=== PATIENT | female | born 1955 | race Caucasian/White ===

== ENCOUNTER 2022-11-08 05:42 | Observation (INO) | payer BC, MEDICARE ==
[2022-11-03 11:26] LABS: Specific Gravity 1.007 (1.005-1.030); Urine Bilirubin NEGATIVE (Negative); Urine Blood Negative (Negative); Urine Clarity Clear (Clear); Urine Color Colorless (Yellow); Urine Glucose NEGATIVE (Negative); Urine Protein NEGATIVE (Negative); Urine Urobilinogen Normal (Normal); Urine pH 7.5 (5.0-7.0)
--- NOTE | 2022-11-03 11:26 | RAD REPORT ---
EXAM DESCRIPTION: Michael Pa And Lat (2 Views)11/03/2022 11:06 am CLINICAL HISTORY: Preop for hip surgery/hypertension COMPARISON: None FINDINGS: Lateral lung bases are not included in the field view are not evaluated Lungs are moderately to markedly hyperaerated. Visualized lungs appear clear of acute infiltrate. The heart is normal size IMPRESSION: Moderately to markedly hyperaerated lungs presumably indicating COPD. No acute abnormality is displayed
[2022-11-03 11:28] LABS: Absolute Lymphocytes (CBC) 1.8 K/uL (0.7-4.9); Hematocrit 40.8 % (36.0-45.0); Lymphocytes % 27.3 % (15.3-44.8); MCV 93.9 fL (80-100); MPV 8.1 fL (7.6-11.3); RBC Red Blood Cell Count 4.34 M/uL (3.86-4.86)
[2022-11-03 11:32] LABS: Protime INR 1.01
[2022-11-03 11:55] LABS: Albumin 3.8 g/dL (3.4-5.0); Bilirubin Total 0.3 mg/dL (0.2-1.0); Potassium 3.8 mmol/L (3.5-5.1); Protein, Total 7.3 g/dL (6.4-8.2)
--- NOTE | 2022-11-03 16:29 | EKG ---
Test Date: 2022-11-03 Test Time: 10:50:41 Oxidation Engineer: MICHELE MEASUREMENT RESULTS: Intervals: Rate: 59 MT: 150 QRSD: 82 QT: 442 QTc: 437 [place]: P: 71 MT: 150 QRS: 67 T: 35 INTERPRETIVE STATEMENTS: Sinus bradycardia Nonspecific T wave abnormality Abnormal ECG No previous ECG available for comparison Electronically Signed On 11-03-22 16:28:38 [employer]ERTER by Silas Guillory
[2022-11-07 12:35] LABS: SARS-CoV-2 Antigen Rapid Res Negative (Negative)
[2022-11-08] MEDS ORDERED: CELECOXIB 100 MG CAPSULE ONE (06:04)
[2022-11-08] MEDS ORDERED: GABAPENTIN 100 MG CAP ONE (06:04)
[2022-11-08] MEDS ORDERED: CEFAZOLIN SODIUM 2 GM/VIAL ONE (06:04)
[2022-11-08] MEDS ORDERED: Oxycodone HCl/Acetaminophen 1 TAB TAB ONE (06:05)
[2022-11-08] MEDS ORDERED: ACETAMINOPHEN 500 MG TAB ONE (06:05)
[2022-11-08] MEDS ORDERED: NA CHLORIDE 0.9% 1,000 ML ONE ×2 (06:05→08:42)
[2022-11-08] MEDS ORDERED: dexAMETHasone 10 MG/ML VIAL ONE ×2 (06:18→06:27)
[2022-11-08] MEDS ORDERED: BUPIVACAINE 0.25% PF 10 ML VIAL ONE (06:18)
[2022-11-08] MEDS ORDERED: BUPIVACAINE 0.75% (PF) 2 ML SP ONE (06:18)
[2022-11-08] MEDS ORDERED: EPINEPHRINE/PF 1 MG/ML AMP ONE ×2 (06:18→08:47)
[2022-11-08] MEDS ORDERED: TRANEXAMIC ACID 1,000 MG/10 ML VIAL IV ONE (06:22)
[2022-11-08] MEDS ORDERED: propofoL 200 MG/20 ML VIAL IV ONE ×2 (06:26→06:27)
[2022-11-08] MEDS ORDERED: FENTANYL CITR 100 MCG/2 ML ONE (06:26)
[2022-11-08] MEDS ORDERED: KETAMINE HCL 500 MG/5 ML VIAL ONE (06:27)
[2022-11-08] MEDS ORDERED: MIDAZOLAM HCL 2 MG/2 ML INJ ONE (06:27)
[2022-11-08] MEDS ORDERED: ONDANSETRON 4 MG/2 ML VIAL ONE (06:28)
[2022-11-08] MEDS ORDERED: LIDOCAINE 2% MPF 5 ML VIAL ONE (06:28)
[2022-11-08] MEDS ORDERED: KETOROLAC 30 MG/ML INJ ONE (06:28)
[2022-11-08] MEDS ORDERED: LIDOCAINE 1% MPF 2 ML AMPULE ONE (06:30)
[2022-11-08] MEDS ORDERED: NS 0.9% VIAL 30 ML ONE (07:30)
[2022-11-08] MEDS ORDERED: NS 0.9% VIAL 10 ML ONE (08:26)
[2022-11-08] MEDS ORDERED: DOCUSATE NA 100 MG CAP PO PRN (09:20)
[2022-11-08] MEDS ORDERED: ONDANSETRON 4 MG/2 ML VIAL IV PRN (09:20)
--- NOTE | 2022-11-08 09:20 | P.BOP ---
Preoperative diagnosis: right hip arthritis Postoperative diagnosis: same Primary procedure: right total hip arthoplasty Estimated blood loss: 100ccs Anesthesia: General Transferred to: Recovery Room Condition: Good
[2022-11-08 10:19] LABS: Hematocrit 34.3 % (36.0-45.0)
--- NOTE | 2022-11-08 10:34 | RAD REPORT ---
EXAM DESCRIPTION: RAD - Hip Right 1 View - 11/08/2022 8:38 am CLINICAL HISTORY: Total hip in OR 5 COMPARISON: None. FINDINGS: Single AP view of the right hip obtained. Right total hip arthroplasty hardware is in satisfactory alignment on the provided single-view. Soft tissue gas along the surgical defect. There is no fracture or dislocation. No acute or destructive rex ny process seen. IMPRESSION: Satisfactory right total hip arthroplasty hardware alignment.
--- OUTSIDE RECORDS SUMMARY | 2022-11-08 10:36 | XMS REPORT | Continuity of Care Document ---
:1955 Author Organization [facility] t Address [address] [facility] [address] [place] [address] Care Team Providers Name Role Phone Sindy Lubin Attending Clinician Aram Scales Admitting Clinician Unavailable Payers Payer Name Policy Type Policy Number Effective Date Expiration Date andrew [facility] [id number] (MEDICARE 00:00:00 REPLACEMENT HMO) Problems Condition Condition Condition Status Onset Resolution Last Treating Co mments Source Name Details Category Date Date Treatment Clinician Date [id number] Primary Problem Comm on osteoarthr [facility] Allergies, Adverse Reactions, Alerts This patient has no known allergies or adverse reactions. Social History Social Habit Start Date Stop Date Quantity Comments Source History of Tobacco Current Smoker [facility] Sex Assigned At Com mon [facility] - [facility] Smoking Status Start Date Stop Date Source Current Smoker 2022-10-05 00:00:00 [facility] Medications Ordered Filled Start Stop Current Ordering Indication Dosage Frequency Signature Comments Components Source Medication Medication Date Date Medication? Clinician (SIG) Name Name Complete Complete No Complete Multi-Vitam Multi-Vitam Multi-Sujata in in min Pravastatin Pravastatin No 1{table QD Pravastati Sodium 40 Sodium 40 t} n Sodium MG MG 40 MG Zolpidem Zolpidem No 1{table QD Zolpidem Tartrate 10 Tartrate 10 t_at_be Tartrate MG MG dtime_a 10 MG s_neede d} Probiotic Probiotic No Probiotic Carvedilol Carvedilol No 1{table BID Carvedilol 6.25 MG 6.25 MG t_with_ 6.25 MG food} Citalopram Citalopram No 1{table QD Citalopram Hydrobromid Hydrobromid t} Hydrobromi e 40 MG e 40 MG de 40 MG metFORMIN metFORMIN No 1{table QD metFORMIN HCl ER 500 HCl ER 500 t_with_ HCl ER 500 MG MG evening MG _meal} Calcium & Calcium & No Calcium & Magnesium Magnesium Magnesium Carbonates Carbonates Carbonates Aspirin 81 Aspirin 81 No 1{table QD Aspirin 81 MG MG t} MG + + No + Complete Complete Complete Multi Multi Multi Vitamin B12 Vitamin B12 No Vitamin B12 Vital Signs Vital Name Observation Time Observation Value Comments Source height 2022-10-05 10:15:00 64 [in_i] [facility] weight 2022-10-05 10:15:00 145 [lb_av] [facility] temperature 2022-10-05 10:15:00 98.0 [degF] [facility] bmi 2022-10-05 10:15:00 24.89 kg/m2 [facility] blood pressure 2022-10-05 10:15:00 122 mm[Hg] [facility] - systolic [facility] blood pressure 2022-10-05 10:15:00 78 mm[Hg] [facility] - diastolic [facility] Procedures This patient has no known procedures. Encounters Start End Encounter Admission Attending Care Care Encounter Source Date/Time Date/Time Type Type Clinicians Facility Department ID 2022-10-07 Outpatient [facility] [id number] Common 10:53:02 [id number] [facility] 2022-10-05 Outpatient [facility] [id number] Common 10:17:00 [id number] [facility] 2022-10-05 2022-10-05 OFFICE [facility] [id number] Co mmon 00:00:00 00:00:00 VISIT NEW Spir it PT LEVEL 3 [facility] 2022-09-22 2022-09-22 CAV Sera [id number] [facility] [id number] [facility] 21:00:00 22:00:00 Tristian [id number] [facility] [id number] 2022-07-25 2022-07-25 Outpatient [facility] [id number] [facility] 00:00:00 00:00:00 [id number] [facility] Results This patient has no known results.
[2022-11-08 11:55] VITALS: BMI 24.9
[2022-11-08] MEDS: CEFAZOLIN 1 GM in NA CHLORIDE 0.9% 50 ML IVPB SCH ×2 (11:56→17:44)
--- NOTE | 2022-11-08 12:33 | P.CNS ---
Date of Consult: 11/08/22 Reason for Consult: Medical management. Requesting Physician: Rufus Fajardo Chief Complaint: Right hip pain History of Present Illness: Patient is a 67-year-old female with a past medical history significant for DM 2, hypertension, insomnia, depression, hyperlipidemia who presents for a planned procedure with his orthopedic surgeon. Patient reported that she has been having pain in her right hip for the past 4 years. Patient has attempted conservative measures, pain medications but pain became worse over time. Patient rated pain as 10/10 in severity and described pain as aching quality before presentation to the hospital. Patient denies any other signs or symptoms. Symptoms are aggravated or relieved by nothing. Patient successfully had a right hip arthroplasty. Patient currently resting in bed at time of assessment. Patient currently denies any pain in left hip pain. Allergies tomato Allergy (Verified 11/08/22 06:29) ulcers in mouth codeine Adverse Reaction (Verified 11/08/22 06:29) Nausea/Vomiting Home Medications: Aspirin 81 mg PO DAILY 11/03/22 Calcium Carb/Mag Ox/Zinc Sulf [Mpl-Nzc-Teto 334-134-5 mg Tab] 1 each PO DAILY 11/03/22 Citalopram Hydrobromide [Citalopram HBr] 40 mg PO BEDTIME 11/03/22 Cyanocobalamin (Vitamin B-12) [Vitamin B12] 2,500 mcg PO DAILY 11/03/22 Lactobacillus Acidophilus [Acidophilus Probiotic] 1 each PO DAILY 11/03/22 Metformin ER [Glucophage ER] 500 mg PO DAILY 11/03/22 Multivitamin 1 each PO DAILY 11/03/22 Pravastatin [Pravachol] 40 mg PO BEDTIME 11/03/22 Zolpidem Tartrate [Ambien] 10 mg PO BEDTIME 11/03/22 carvediloL [Carvedilol] 6.25 mg PO BID 11/03/22 - Past Medical/Surgical History Diabetic: Yes -: DM -: HTN -: hysterectomy - Family History Father Medical History: Cancer Notes: bone cancer with mets to lung and brain Mother Medical History: Stroke - Social History Smoking Status: Current every day smoker Counseled patient to stop smoking for: less than 10 minutes Smoking therapy provided: Yes Patient receptive to therapy: Yes Alcohol use: No CD- Drugs: No Caffeine use: Yes Place of Residence: Home Review of Systems General: Unremarkable Eyes: Unremarkable ENT: Unremarkable Respiratory: Unremarkable Cardiovascular: Unremarkable Gastrointestinal: Unremarkable Genitourinary: Unremarkable Musculoskeletal: Other (Right hip pain ) Integumentary: Unremarkable Neurological: Unremarkable Lymphatics: Unremarkable Physical Examination Temp Pulse Resp BP Pulse Ox 97.4 F 55 16 134/58 L 97 11/08/22 12:00 11/08/22 12:00 11/08/22 12:00 11/08/22 12:00 11/08/22 12:00 General: Oriented x3, Cooperative HEENT: Atraumatic, Normocephalic, PERRLA Neck: Supple, 2+ carotid pulse no bruit, JVD not distended, No Thyromegaly Respiratory: Clear to auscultation bilaterally, Normal air movement Cardiovascular: No edema, Normal pulses, Regular rate/rhythm Capillary refill: <2 Seconds Gastrointestinal: Normal bowel sounds, Non-distended Musculoskeletal: Tenderness Integumentary: No rashes, No breakdown, No significant lesion Neurological: Normal speech, Normal tone, Normal affect Lymphatics: No axilla or inguinal lymphadenopathy Laboratory Data (last 24 hrs) 11/08/22 10:04: Hgb 11.7 L, Hct 34.3 L Conclusions/Impression: --Right hip osteoarthritis. Status post right total hip replacement. Orthopedic surgeon on board. PT eval and treat. Will await further recommendations. -- DM2. BS monitoring with sliding scale insulin. --Hypertension. Stable. Continue home medication. --Nicotine dependence. Patient counseled on cessation. Refuses nicotine patch. -- Hyperlipidemia. Continue statin. --Insomnia. Continue home medication. --Depression. Continue home medication. --DVT prophylaxis with SCDs. Physician Review: Patient Assessed, Agree with Above Assessment and Plan Critical Care: No
[2022-11-08] MEDS ORDERED: PNEUMOCOCCAL VACCINE 0.5 ML IMVAC ONE (13:00)
[2022-11-08 13:08] LABS: Phosphorus 3.5 mg/dL (2.5-4.9)
[2022-11-08] MEDS: HYDROCODONE/APAP 5/325 MG TAB PO PRN ×2 (14:37→20:32)
[2022-11-08 17:13] LABS: Hematocrit 34.7 % (36.0-45.0)
[2022-11-08] MEDS ORDERED: HYDROCODONE/APAP 5/325 MG TAB PO ONE (17:17)
[2022-11-08] MEDS: NICOTINE 14 MG/PAT TD SCH (17:26)
[2022-11-08] MEDS: INSULIN -REGULAR HUMAN 50 UNIT/0.5 ML ML SQ SCH ×2 (17:28→20:43)
--- NOTE | 2022-11-08 20:08 | OP ---
Date of Procedure: 11/08/2022 Surgeon: Rufus Fajardo MD Preoperative Diagnosis: Right hip arthritis. Postoperative Diagnosis: Right hip arthritis. Procedure: Right total hip arthroplasty using the [place] system. Estimated Blood Loss: 100 cc. Complications: There were no complications. Indications For Operation: Ms. Chávez is a 67-year-old female who has been troubled with the right hip for quite some time. It is limiting her activities of daily living and is extremely painful. X-ray s demonstrate severe arthritic change with some destruction of the acetabulum, and risks, benefits, a nd alternatives of different methods of treating this was discussed with her. She would opt for a to rubén hip arthroplasty and agrees to proceed. Description Of Procedure: The patient was taken to the operating room and moved to the operative bed . A spinal anesthesia was then performed. She does have a Baugh placed. She was then rolled left s rakel down with an axillary roll and her right lower extremity was then prepped and draped in usual meaghan rile fashion for the procedure after being properly positioned using hip positioners. A standard siena venegas taken down carefully through skin and soft tissue. Meticulous hemostasis being maintained with the Bovie electrocautery. This leads down to the fascia. A small stab wound was made in the fascia and the gluteal tendon was palpated to ensure the fascial incision was in the correct position. Aft er this, the fascial incision was then taken carefully up to near the tip of the greater trochanter w here the fibers of gluteus daphnie were encountered. The gluteus daphnie was then spread using finge r pressure. The sciatic nerve was then palpated and protected as the bursa was removed. This allowe d for visualization of the external rotators and the external rotators and capsule were then taken do wn and tagged for later repair. The hip itself was then dislocated and a slightly shorter than stand tyrel neck cut was then performed. The head was then measured. Any soft tissues were removed from ins rakel the acetabulum. The acetabulum itself appeared to be dished out superiorly and anteriorly with s ome central osteophyte. The true acetabular floor was then obtained using reamers and it was then re emili up sequentially. After this, the Radha cup was then placed in appropriate position and hammer ed into place. Attention was then turned to the femur and hand box coverer was used to lateralize followed by canal-finding reamer followed by sequential broaching. An x-ray was then performed which demonst rated the cup could be placed a little bit more firmly into the acetabulum and it looks like we can g o up 1 size on the stem. The stem was then broached to next size up and the liner was placed in the acetabulum, which was then secured in place using the ball impactor. The acetabulum itself was extre terence stable. After this, the final stem was then placed and it appeared to be very solid. The wound was copiously irrigated and a trial -4 was selected. It was quite difficult to relocate this until decision was made to move forward with the final -4 as this was the shortest that we had. I do not t hink that cutting the neck farther and putting a smaller stem would be beneficial as the neck cut was already short and it was definitely not prominent. I think that we are re-establishing a hip center with this -4. The final -4 ball was then tapped into place and it was then reduced. It was very st able to flexion, adduction and internal rotation. It comes to full extension with some tightness and extending past 0, however, not overly so. The wound was then copiously irrigated. The external rot ators and capsule were then repaired back to the greater trochanter via bone tunnels. This was follo wed by irrigation and closure of the skin in a watertight fashion using heavy Vicryl followed by clos ure of the skin using 2-0 Vicryl followed by pedro. [facility] recovery [facility]. /SHAGUFTA Voice ID: [id number] Report ID: [id number]
[2022-11-08] MEDS: carvediloL 6.25 MG TAB PO SCH (20:31)
[2022-11-08] MEDS ORDERED: ZOLPIDEM TARTRATE 10 MG TABLET PO SCH (21:00)
[2022-11-08] MEDS ORDERED: HOME MED 1 EA UNK (Pravastatin [Pravachol*] 40 MG/TAB Tab) PO SCH (21:00)
[2022-11-08] MEDS ORDERED: ATORVASTATIN 10 MG TAB PO SCH (21:00)
[2022-11-08] MEDS ORDERED: CITALOPRAM 10 MG TABLET PO SCH (21:00)
[2022-11-09] MEDS: CEFAZOLIN 1 GM in NA CHLORIDE 0.9% 50 ML IVPB SCH (00:09)
[2022-11-09] MEDS: HYDROCODONE/APAP 5/325 MG TAB PO PRN ×4 (00:44→12:37)
[2022-11-09 03:42] LABS: Absolute Lymphocytes (CBC) 0.8 K/uL (0.7-4.9); Hematocrit 32.2 % (36.0-45.0); Lymphocytes % 6.8 % (15.3-44.8); MCV 93.5 fL (80-100); MPV 8.4 fL (7.6-11.3); RBC Red Blood Cell Count 3.44 M/uL (3.86-4.86)
[2022-11-09 03:59] LABS: Potassium 3.6 mmol/L (3.5-5.1)
[2022-11-09] MEDS ORDERED: POTASSIUM 25 MEQ EFFERV TAB PO ONE (05:01)
[2022-11-09] MEDS: INSULIN -REGULAR HUMAN 50 UNIT/0.5 ML ML SQ SCH ×2 (07:30→11:30)
[2022-11-09] MEDS: carvediloL 6.25 MG TAB PO SCH (08:36)
[2022-11-09] MEDS: NICOTINE 14 MG/PAT TD SCH (08:38)
[2022-11-09 08:55] VITALS: O2SAT 94
[2022-11-09] MEDS ORDERED: CALCIUM CARB PO SCH (09:00)
[2022-11-09] MEDS ORDERED: LACTOBACILLUS/ACIDOPHILUS TAB PO SCH (09:00)
[2022-11-09] MEDS ORDERED: ZINC SULF PO SCH (09:00)
[2022-11-09] MEDS ORDERED: MULTIVIT W/ MINERAL TAB PO SCH (09:00)
[2022-11-09] MEDS ORDERED: ENOXAPARIN 40 MG/0.4 ML SQ SCH (09:00)
[2022-11-09] MEDS ORDERED: MAG OX PO SCH (09:00)
[2022-11-09] MEDS ORDERED: [UNRECOGNIZED DRUG - OTHER] PO SCH (09:00)
[2022-11-09] MEDS ORDERED: CYANOCOBALAMIN 1,000 MCG TAB PO SCH (09:00)
[2022-11-09 12:27] VITALS: BP 149/70; TEMP 98.4
--- NOTE | 2022-11-09 23:28 | P.PN ---
Subjective Date of Service: 11/09/22 Chief Complaint: Right hip pain POD #1 right total hip arthroplasty. She is doing well this morning. She reports mild hip pain. She has been working well with PT and has been ambulating around the nursing station, without significant issues. Review of Systems 10-point ROS is otherwise unremarkable Musculoskeletal: Leg Pain (right hip) Physical Examination - Vital Signs Temperature: 98.4 F Blood Pressure: 149/70 Pulse: 59 Respirations: 16 Pulse Ox (%): 98 - Physical Exam General: Alert, In no apparent distress, Oriented x3 HEENT: Atraumatic, Mucous membr. moist/pink, EOMI, Sclerae nonicteric Neck: JVD not distended Respiratory: Clear to auscultation bilaterally, Normal air movement Cardiovascular: No edema, Regular rate/rhythm, Normal S1 S2, No gallops, No rubs, No murmurs Gastrointestinal: Normal bowel sounds, Soft and benign, Non-distended, No tenderness, No rebound, No guarding Musculoskeletal: No clubbing Integumentary: No rashes Neurological: Normal speech, Cranial nerves 3-12 intact, Normal affect - Studies Laboratory Data (last 24 hrs) 11/09/22 02:47: Sodium 140, Potassium 3.6, BUN 13, Creatinine 0.73, Glucose 201 H 11/09/22 02:47: WBC 12.00 H, Hgb 11.1 L, Hct 32.2 L, Plt Count 243 Assessment And Plan - Plan DIAGNOSES: # Right Hip Osteoarthritis s/p Right Hip Total Arthroplasty (11/08/2022) # Suspect Reactive Leukocytosis # Hyperglycemia in Type II Diabetes Mellitus # Depression # Hyperlipidemia RECOMMENDATIONS: 1. She appears to be doing well physically and will likely do well with Home Health 2. In regards to her hyperglycemia, please resume her home diabetic medications and start ADA diet 3. Her WBC is borderline high, there are no clinical signs of infection - suspect this is reactive due to pain - If discharge is planned for today, consider rechecking her CBC in a few days to ensure WBC has normalized. Thank you for this consultation. Internal Medicine will continue to follow along while she is hospitalized. Jose Zavala M.D.
== END 2022-11-09 13:45 | disposition home health service (06) ==
LOC: OR 05:42 → 2ND 10:33
PROVIDERS: ADMIT Orthopaedic Surgery; ATTEND Orthopaedic Surgery
PROC: 0SR90JA Replacement of Right Hip Joint with Synthetic Substitute, Uncemented, Open Approach (ICD-10-PCS; principal; 2022-11-08 07:00)
DX: M16.11 Unilateral primary osteoarthritis, right hip (principal); E11.9 Type 2 diabetes mellitus without complications; I10 Essential (primary) hypertension; E78.00 Pure hypercholesterolemia, unspecified; F17.210 Nicotine dependence, cigarettes, uncomplicated; F32.A Depression, unspecified
CPT/HCPCS: 93005; 85025 ×2; 80048; 36415 ×4; 86900; 83735; 86850; 84100; 85610; 86901; 82947 ×6; 88305; 88311; 85730; 85018 ×2; 85014 ×2; 81003; 80053; 71046; 73501; 97110; 97116 ×2; 97161; 97530; 87811; 27130; J2704 ×2; J0171 ×2; J1815 ×2; J2001; J1650; J2250; J3010; J1100 ×2; A4216 ×2; J7030 ×2; J2405 ×2; J0690 ×3; G0378; G0379

== ENCOUNTER 2023-04-15 12:37 | Emergency (ER) | payer MEDICARE ==
--- OUTSIDE RECORDS SUMMARY | 2023-04-15 12:39 | XMS REPORT | Continuity of Care Document ---
:1955 Author Organization [facility] t Address [address] [place] [address] [address] [place] [address] Care Team Providers Name Role Phone Sindy Lubin Attending Clinician Kirk Attending Clinician Unavailable Aram Scales Admitting Clinician Unavailable Kirk Admitting Clinician Unavailable Payers Payer Name Policy Type Policy Number Effective Date Expiration Date S andrew [facility] [id number] (MEDICARE 00:00:00 REPLACEMENT HMO) Problems Condition Condition Condition Status Onset Resolution Last Treating Co mments Source Name Details Category Date Date Treatment Clinician Date [id number] Primary Problem Comm on osteoarthr [facility] right hip [facility] Allergies, Adverse Reactions, Alerts This patient has no known allergies or adverse reactions. Social History Social Habit Start Date Stop Date Quantity Comments Source History of Tobacco Current Smoker [facility] - [facility] Use [facility] Sex Assigned At Com mon [facility] - [facility] Smoking Status Start Date Stop Date Source Current Smoker 2022-10-05 00:00:00 [facility] - [facility] Medications Ordered Filled Start Stop Current Ordering Indication Dosage Frequency Signature Comments Components Source Medication Medication Date Date Medication? Clinician (SIG) Name Name Vitamin B12 Vitamin B12 No Vitamin B12 Complete Complete No Complete Multi-Vitam Multi-Vitam Multi-Sujata [...] + Complete Complete Complete Multi Multi Multi Vital Signs Vital Name Observation Time Observation Value Comments Source height 2022-10-05 10:15:00 64 [in_i] [facility] weight 2022-10-05 10:15:00 145 [lb_av] [facility] temperature 2022-10-05 10:15:00 98.0 [degF] [facility] bmi 2022-10-05 10:15:00 24.89 kg/m2 [facility] blood pressure 2022-10-05 10:15:00 122 mm[Hg] [facility] - systolic [facility] blood pressure 2022-10-05 10:15:00 78 mm[Hg] [facility] - diastolic [facility] Procedures This patient has no known procedures. Encounters Start End Encounter Admission Attending Care Care Encounter Source Date/Time Date/Time Type Type Clinicians Facility Department ID 2022-10-07 Outpatient [facility] [id number] Common 10:53:02 [id number] [facility] 2022-10-05 Outpatient [facility] [id number] Common 10:17:00 [id number] [facility] 2023-04-14 2023-04-14 CAV Sera [id number]. [id number]. [facility] [id number] [facility] 20:00:00 20:30:00 Revisit: Tristian [id number] 4. [id number] Closure & [id number] Clinical Check-in 2023-04-06 2023-04-06 [facility]patient [facility] [id number] [facility] 00:00:00 00:00:00 [id number] [facility] 2023-01-14 2023-01-14 [facility] [id number] [facility] 00:00:00 00:00:00 [id number] [facility] 2022-10-05 2022-10-05 OFFICE [facility] [id number] Co mmon 00:00:00 00:00:00 VISIT [facility] PT LEVEL 3 - [facility] 2022-09-22 2022-09-22 CAV Sera [id number]. [id number]. [facility] [id number] [facility] 21:00:00 22:00:00 Tristian [id number] [facility] 4 [id number] 2022-07-25 2022-07-25 [facility]patient [facility] [id number] [facility] 00:00:00 00:00:00 [id number] [facility] Results This patient has no known results.
[2023-04-15 13:23] LABS: Absolute Lymphocytes (CBC) 2.7 K/uL (0.7-4.9); Hematocrit 38.8 % (36.0-45.0); Lymphocytes % 36.9 % (15.3-44.8); MCV 93.6 fL (80-100); MPV 7.7 fL (7.6-11.3); RBC Red Blood Cell Count 4.15 M/uL (3.86-4.86)
--- NOTE | 2023-04-15 13:40 | RAD REPORT ---
EXAM DESCRIPTION: RAD - Chest Single View - 04/15/2023 1:34 pm CLINICAL HISTORY: CHEST PAIN Chest pain. COMPARISON: <Comparisons> FINDINGS: Portable technique limits examination quality. The lungs are grossly clear. The heart is normal in size. No displaced fractures. IMPRESSION: No acute intrathoracic process suspected.
[2023-04-15 13:43] LABS: Albumin 3.4 g/dL (3.4-5.0); Bilirubin Direct 0.1 mg/dL (0-0.2); Bilirubin Indirect, Calculated 0.3 mg/dL (0.2-0.8); Bilirubin Total 0.4 mg/dL (0.2-1.0); Potassium 3.5 mEq/L (3.5-5.1); Troponin High Sensitivity 4.5 pg/mL (<58.9)
[2023-04-15] MEDS ORDERED: NA CHLORIDE 0.9% 500 ML ONE (14:57)
[2023-04-15 15:20] LABS: Specific Gravity 1.015 (1.005-1.030); Urine Bilirubin Negative (Negative); Urine Blood Negative (Negative); Urine Clarity Clear (Clear); Urine Color Yellow (Yellow); Urine Glucose Negative (Negative); Urine Protein Negative (Negative); Urine Urobilinogen 0.2 mg/dL (0.2-1.0); Urine pH 8.5 (5.0-7.0)
[2023-04-15 15:26] LABS: Urine Bacteria None Seen /HPF (<20); Urine RBC <5 /HPF (None Seen)
--- NOTE | 2023-04-15 16:02 | RAD REPORT ---
EXAM DESCRIPTION: CT - Head Brain Wo Cont - 04/15/2023 3:56 pm CLINICAL HISTORY: Dizziness;Weakness Headache, drowsiness COMPARISON: <Comparisons> TECHNIQUE: All CT scans are performed using dose optimization technique as appropriate and may inclu de automated exposure control or mA/KV adjustment according to patient size. FINDINGS: No intracranial hemorrhage, hydrocephalus or extra-axial fluid collection.Mild generalized brain atrophy.No areas of brain edema or evidence of midline shift. The paranasal sinuses and mastoids are clear. The calvarium is intact. IMPRESSION: No acute intracranial abnormality.
[2023-04-15] MEDS ORDERED: MECLIZINE HCL 12.5 MG TAB ONE (16:06)
--- NOTE | 2023-04-15 16:43 | ER ---
Nurse's Notes [facility] Name: Lexi Chávez Age: 67 yrs Sex: Female : 1955 Arrival Date: 04/15/2023 Time: 12:37 Bed 14 Private MD: Diagnosis: Weakness;Dizziness and giddiness Presentation: 04/15 12:44 Chief complaint: Patient states: has been shaky and weak X 2 days, her BS has been iw running low in the 60's , she is pre-diabetic , her BP has been running high , denies chills, she felt like she might have had fever this morning, denies n/v/d. 12:45 Coronavirus screen: Client presents with at least one sign or symptom that may indicate iw coronavirus-19. Ebola Screen: Patient negative for fever greater than or equal to 101.5 degrees Fahrenheit, and additional compatible Ebola Virus Disease symptoms Patient denies exposure to infectious person. Patient denies travel to an Ebola-affected area in the 21 days before illness onset. No symptoms or risks identified at this time. Initial Sepsis Screen: Does the patient meet any 2 criteria? No. Patient's initial sepsis screen is negative. Does the patient have a suspected source of infection? No. Patient's initial sepsis screen is negative. Risk Assessment: Do you want to hurt yourself or someone else? Patient reports no desire to harm self or others. Onset of symptoms was April 13, 2023. 12:45 Method Of Arrival: Ambulatory iw 12:45 Acuity: DENISA 3 iw Triage Assessment: 16:59 General: Behavior is. kc6 Historical: - Allergies: 12:47 No Known Allergies; iw - Home Meds: 12:47 pravastatin oral [Active]; carvedilol oral [Active]; Metformin Oral [Active]; iw - Immunization history:: Adult Immunizations up to date. - Social history:: Smoking status: Patient reports the use of cigarette tobacco products. Screenin:50 [facility] ED Fall Risk Assessment (Adult) History of falling in the last 3 months, dd1 including since admission No falls in past 3 months (0 pts) Score/Fall Risk Level 0 - 2 = Low Risk Oriented to surroundings, Maintained a safe environment. Abuse screen: Denies threats or abuse. Denies injuries from another. Nutritional screening: No deficits noted. Tuberculosis screening: No symptoms or risk factors identified. Assessment: 12:50 Pain: Denies pain. Cardiovascular: No deficits noted. Reports fatigue, WEAKNESS SINCE dd1 YESTERDAY, STATES BLOOD SUGAR LOW. LOWEST AT HOME 75. STATES FEELING SHAKY, DENIES FEVER. STATES COULD ALSO BE HAVING A SINU INFECTION DUE TO HEAD ACHE ABOVE L EYE. AOX4, GCS 15. Heart tones S1 S2 Chest pain is denied. 13:41 Reassessment: Patient appears in no apparent distress at this time. Patient and/or [facility] family updated on plan of care and expected duration. Pain level reassessed. Patient is alert, oriented x 3, equal unlabored respirations, skin warm/dry/pink. 14:45 Reassessment: Patient appears in no apparent distress at this time. No changes from [facility] previously documented assessment. Patient and/or family updated on plan of care and expected duration. Pain level reassessed. Patient is alert, oriented x 3, equal unlabored respirations, skin warm/dry/pink. 15:45 Reassessment: Patient appears in no apparent distress at this time. No changes from [facility] previously documented assessment. Patient and/or family updated on plan of care and expected duration. Pain level reassessed. Patient is alert, oriented x 3, equal unlabored respirations, skin warm/dry/pink. Vital Signs: 12:45 BP 151 / 98; Pulse 60; Resp 18; Temp 98.3; Pulse Ox 99% on R/A; Weight 63.5 kg; Height iw 5 ft. 3 in. ; 13:41 BP 137 / 83; Pulse 53; Resp 17 S; Pulse Ox 93% on R/A; kc6 15:10 BP 144 / 75; Pulse 56; Resp 19 S; Pulse Ox 96% on R/A; kc6 16:12 BP 155 / 86; Pulse 60; Resp 17 S; Pulse Ox 100% on R/A; kc6 12:45 Body Mass Index 24.80 (63.50 kg, 160.02 cm) iw ED Course: 12:38 Patient arrived in ED. mm9 12:41 Yayo Feldman, AMANDA is Primary Nurse. dd1 12:46 Christina Leal FNP-C is PHCP. kb 12:46 Rosalie Centeno MD is Attending Physician. kb 12:47 Triage completed. iw 12:47 Arm band placed on. iw 12:50 Patient has correct armband on for positive identification. Bed in low position. Call dd1 light in reach. Side rails up X 1. Adult w/ patient. 13:19 monitoring analyst on. Pulse ox on. NIBP on. dd1 13:19 Inserted saline lock: 18 gauge in left wrist, using aseptic technique. dd1 13:36 XRAY Chest (1 view) In Process Unspecified. EDMS 13:41 Report received from Yayo Feldman RN. kc6 15:57 CT Head Brain wo Cont In Process Unspecified. EDMS 16:12 Troponin High Sensitivity Sent. kc6 16:59 No provider procedures requiring assistance completed. IV discontinued, intact, kc6 bleeding controlled, No redness/swelling at site. Pressure dressing applied. Administered Medications: 14:56 Drug: NS 0.9% IV 500 ml Route: IV; Rate: bolus; Site: left wrist; kc6 16:05 Follow up: Response: No adverse reaction; IV Status: Completed infusion; IV Intake: kc6 500ml 16:12 Drug: Meclizine PO 25 mg Route: PO; kc6 16:44 Follow up: Response: No adverse reaction kc6 Medication: 12:50 VIS not applicable for this client. dd1 Intake: 16:05 IV: 500ml; Total: 500ml. kc6 Outcome: 16:43 Discharge ordered by . kb 16:59 Discharged to home ambulatory, with family. kc6 16:59 Condition: stable 16:59 Discharge instructions given to patient, Instructed on discharge instructions, follow up and referral plans. Demonstrated understanding of instructions, follow-up care. 16:59 Patient left the ED. kc6 Signatures: Dispatcher [employer] EDMS Christina Leal, BACKUP ADMINISTRATIVE COORDINATOR-C BACKUP ADMINISTRATIVE COORDINATOR-CkLuna Randolph RN RN iw Dipika Lambert RN RN kc6 Martinez, Maria mm9 Yayo Feldman, AMANDA RN dd1 Corrections: (The following items were deleted from the chart) 12:47 12:44 Chief complaint: Patient states: has been shaky and weak X 2 days iw iw
--- NOTE | 2023-04-15 16:43 | EDPHYS ---
Physician Documentation [facility] Name: Lexi Chávez Age: 67 yrs Sex: Female : 1955 Arrival Date: 04/15/2023 Time: 12:37 Bed 14 Private MD: ED Physician Rosalie Centeno HPI: 04/15 16:47 This 67 yrs old Female presents to ER via Ambulatory with complaints of General kb Weakness. 16:47 The patient presents with dizziness, generalized weakness. Onset: The symptoms/episode kb began/occurred 3 day(s) ago. Context: occurred at home. Modifying factors: The symptoms are alleviated by nothing, the symptoms are aggravated by changing position. Associated signs and symptoms: Pertinent positives: high blood pressure, low blood sugar, shakiness. Severity of symptoms: At their worst the symptoms were moderate in the emergency department the symptoms have improved mildly. Patient's baseline: Neuro: alert and fully oriented, Motor: no deficits, Ambulation: walks without assistance, Speech: normal. The patient has not experienced similar symptoms in the past. The patient has not recently seen a physician. Pt reports high blood pressure, low blood sugar, weakness, shakiness and dizziness for 3 days. . Historical: - Allergies: 12:47 No Known Allergies; iw - Home Meds: 12:47 pravastatin oral [Active]; carvedilol oral [Active]; Metformin Oral [Active]; iw - Immunization history:: Adult Immunizations up to date. - Social history:: Smoking status: Patient reports the use of cigarette tobacco products. ROS: 16:33 Constitutional: Negative for fever, chills, and weight loss. kb 16:33 Cardiovascular: Positive for chest pain, of the anterior aspect of right upper chest. 16:33 Neuro: Positive for dizziness, weakness. 16:33 All other systems are negative. Exam: 16:46 Constitutional: This is a well developed, well nourished patient who is awake, alert, kb and in no acute distress. Head/Face: Normocephalic, atraumatic. ENT: Moist Mucous membranes Cardiovascular: Regular rate and rhythm with a normal S1 and S2. No gallops, murmurs, or rubs. No pulse deficits. Respiratory: Respirations even and unlabored. No increased work of breathing. Talking in full sentences Abdomen/GI: Soft, non-tender. No distention Skin: Warm, dry with normal turgor. Normal color. MS/ Extremity: Pulses equal, no cyanosis. Neurovascular intact. Full, normal range of motion. Neuro: Awake and alert, GCS 15, oriented to person, place, time, and situation. Moves all extremities. Normal gait. Vital Signs: 12:45 BP 151 / 98; Pulse 60; Resp 18; Temp 98.3; Pulse Ox 99% on R/A; Weight 63.5 kg; Height iw 5 ft. 3 in. ; 13:41 BP 137 / 83; Pulse 53; Resp 17 S; Pulse Ox 93% on R/A; kc6 15:10 BP 144 / 75; Pulse 56; Resp 19 S; Pulse Ox 96% on R/A; kc6 16:12 BP 155 / 86; Pulse 60; Resp 17 S; Pulse Ox 100% on R/A; kc6 12:45 Body Mass Index 24.80 (63.50 kg, 160.02 cm) iw MDM: 12:46 Patient medically screened. kb 16:39 Data reviewed: vital signs, nurses notes. kb 16:48 Differential diagnosis: cardiac arrhythmia, generalized weakness, hypovolemia, kb near-syncope, TIA, vertigo. Consideration of Admission/Observation Escalation of care including admission/observation considered. admission considered, but pt states she will just go home and rest since the testing was ok. Will follow up with Dr Gupta, has appt scheduled already. 16:49 Counseling: I had a detailed discussion with the patient and/or guardian regarding: the kb historical points, exam findings, and any diagnostic results supporting the discharge/admit diagnosis, lab results, radiology results, the need for outpatient follow up, a clothes shaker, a family practitioner, a neurologist, to return to the emergency department if symptoms worsen or persist or if there are any questions or concerns that arise at home. 04/15 12:54 Order name: Basic Metabolic Panel; Complete Time: 13:44 kb 04/15 12:54 Order name: CBC with Diff; Complete Time: 13:28 kb 04/15 12:54 Order name: LFT's; Complete Time: 13:44 kb 04/15 12:54 Order name: Magnesium; Complete Time: 13:44 kb 04/15 12:54 Order name: NT PRO-BNP; Complete Time: 13:44 kb 04/15 12:54 Order name: Troponin HS; Complete Time: 13:44 kb 04/15 13:26 Order name: Glucose, Ancillary Testing; Complete Time: 13:28 EDMS 04/15 15:21 Order name: Urinalysis w/ reflexes; Complete Time: 15:29 EDMS 04/15 15:27 Order name: Urine Microscopic Only; Complete Time: 15:29 EDMS 04/15 15:35 Order name: Troponin High Sensitivity; Complete Time: 16:39 kb 04/15 12:54 Order name: XRAY Chest (1 view); Complete Time: 13:44 kb 04/15 15:34 Order name: CT Head Brain wo Cont; Complete Time: 16:06 kb 04/15 12:54 Order name: EKG; Complete Time: 12:55 kb 04/15 12:54 Order name: Cardiac monitoring; Complete Time: 13:18 kb 04/15 12:54 Order name: EKG - Nurse/Tech; Complete Time: 13:18 kb 04/15 12:54 Order name: IV Saline Lock; Complete Time: 13:18 kb 04/15 12:54 Order name: Labs collected and sent; Complete Time: 13:18 kb 04/15 12:54 Order name: O2 Per Protocol; Complete Time: 13:18 kb 04/15 12:54 Order name: O2 Sat Monitoring; Complete Time: 13:18 kb 04/15 12:54 Order name: Blood Glucose Level; Complete Time: 13:18 kb Administered Medications: 14:56 Drug: NS 0.9% IV 500 ml Route: IV; Rate: bolus; Site: left wrist; kc6 16:05 Follow up: Response: No adverse reaction; IV Status: Completed infusion; IV Intake: kc6 500ml 16:12 Drug: Meclizine PO 25 mg Route: PO; kc6 16:44 Follow up: Response: No adverse reaction kc6 Disposition: 19:17 I reviewed the patient's care provided by Advanced Practice Provider \T\ agree w/ the cp3 diagnosis \T\ care plan. I personally saw the pt \T\ performed a substantive portion of the visit, incldng all aspects of the (History/Exam/Medical Decision Making). Disposition Summary: 04/15/23 16:43 Discharge Ordered Location: Home kb Condition: Stable kb Diagnosis - Weakness kb - Dizziness and giddiness kb Followup: kb - With: Emergency Department - When: As needed - Reason: Worsening of condition Followup: kb - With: Private Physician - When: 2 - 3 days - Reason: Recheck today's complaints, Continuance of care, Re-evaluation by your physician Discharge Instructions: - Discharge Summary Sheet kb - Vertigo, [id number] kb - Weakness, [id number] kb - Dizziness, [id number] kb Forms: - Medication Reconciliation Form kb - Thank You Letter kb - Antibiotic Education kb - Prescription Opioid Use kb - Patient Portal Instructions kb Signatures: Dispatcher [employer] EDMS Christina Leal, PARACHUTE PANEL JOINER-C PARACHUTE PANEL JOINER-Rosalei Lim MD MD cp3 Luna Vazquez RN RN iw Dipika Lambert RN RN kc6 Yayo Feldman RN RN dd1 Corrections: (The following items were deleted from the chart) 15:28 14:42 Urinalysis+U.LAB.BRZ ordered. EDCT EDCT
[2023-04-15 17:40] VITALS: TEMP 98.3
[2023-04-15 17:57] VITALS: BP 155/86; O2SAT 100
--- NOTE | 2023-04-17 13:06 | EKG ---
Test Date: 2023-04-15 Test Time: 13:06:23 Nonprofit Manager: TRINY MEASUREMENT RESULTS: Intervals: Rate: 57 MO: 140 QRSD: 80 QT: 504 QTc: 490 Worth: P: 69 MO: 140 QRS: 26 T: 166 INTERPRETIVE STATEMENTS: Sinus bradycardia Possible Left atrial enlargement ST & T wave abnormality, consider lateral ischemia Abnormal ECG Compared to ECG 11/03/2022 10:50:41 ST (T wave) deviation now present Possible ischemia now present T-wave abnormality no longer present Electronically Signed On 04-17-23 13:04:45 CDT by Silas Guillory
== END 2023-04-15 16:59 | disposition home or self-care (01) ==
LOC: ER 12:37
DX: R53.1 Weakness (principal); R42 Dizziness and giddiness; R07.9 Chest pain, unspecified; Z72.0 Tobacco use
CPT/HCPCS: 93005; 85025; 80048; 36415; 83735; 82947; 80076; 84484 ×2; 83880; 70450; 71045; 96360; 99285; J8597; J7040; 81003; 81015